=== PATIENT | female | born 1975 | race Caucasian/White ===

== ENCOUNTER 2022-11-19 13:01 | Emergency (ER) | payer MEDICAID, SELFPAY ==
--- NOTE | ~2022-11-19 | CT_ITS ---
EXAMINATION: CT CERVICAL SPINE WITHOUT CONTRAST CLINICAL INFORMATION: Neck pain, radiating back. COMPARISON: There are no prior studies available for comparison. TECHNIQUE: A noncontrast axial CT scan of the cervical spine was obtained. Coronal and sagittal reformatted images were generated at the acquisition workstation. This CT examination was performed using dose optimization techniques as appropriate, variously including the following: *Automated exposure control *Adjustment of mA and/or kV according to patient size (this includes techniques or standardized protocols for targeted exams where dose is matched to indication/reason for exam; i.e. extremities or head) *Use of iterative reconstruction technique DLP: 504 mGy-cm FINDINGS: VERTEBRAL BODIES AND PARASPINAL SOFT TISSUES: There is a slight dextroscoliosis. There is mild reversal of the cervical lordosis. No fractures are demonstrated and the lateral masses of C1 and C2 are normally aligned. The dens is intact. There is normal alignment of the facet joints. The prevertebral soft tissues are unremarkable. There is no cervical lymphadenopathy. The thyroid gland appears normal. The visualized upper lung doshi are well-aerated. SPINAL LEVELS: C2-C3: The facet joints appear normal. There is a small annular calcification posteriorly, there is no central stenosis, and the neural foramina appear patent. C3-C4: The facet joints appear normal bilaterally. Posterior disc contour is normal. There is no spinal cord compression or central stenosis. The neural foramina are patent bilaterally. C4-C5: The facet joints appear normal bilaterally. Posterior disc contour is normal. There is no spinal cord compression or central stenosis. The neural foramina are patent bilaterally. C5-C6: The facet joints appear normal. There is a very shallow posterior disc protrusion without cord compression or central stenosis. The neural foramina are patent. C6-C7: The facet joints appear normal bilaterally. Posterior disc contour is normal. There is no spinal cord compression or central stenosis. The neural foramina are patent bilaterally. C7-T1: The facet joints appear normal bilaterally. Posterior disc contour is normal. There is no spinal cord compression or central stenosis. The neural foramina are patent bilaterally. CT/CT cervical spine wo IV con IMPRESSION: 1. There are no acute fractures or subluxations. 2. There is no significant spondylosis or facet arthropathy. There is no central stenosis or foraminal narrowing. Fleischner guidelines were followed.
[2022-11-19 14:01] VITALS: BP 141/80; PULSE 73; RESP 18; TEMP 37.3; O2SAT 98; BMI 48.7
--- NOTE | 2022-11-19 14:04 | ED_ITS ---
HPI - General Adult General Chief complaint: Back Pain/Injury Stated complaint: neck pain to back pain Time Seen by Provider: 11/19/22 15:07 Source: patient and sign language interpreter Mode of arrival: ambulatory Limitations: language barrier History of Present Illness HPI narrative: Patient is a 47-year-old Icelandic-speaking female presenting to the emergency department with complaint of right lateral neck pain radiating down right shoulder for the past 2 weeks. Patient denies any fall or other trauma. She reports she is developing headaches related to the neck pain. She denies worst headache at onset, denies worse headache of life. Denies any visual changes. Has been using ibuprofen at home but recently ran out. Denies any fevers. Denies any numbness or tingling to her arm. complaint: Right lateral neck pain Onset (ago): week(s) Location: neck Radiation: other (Right shoulder) Severity: severe Severity scale (1-10): 10 Quality: aching Pain Consistency: constant Relieving factors: none Exacerbating factors: movement Associated symptoms: other (Headache) Treatments prior to arrival: NSAID Related Data Previous Rx's Medication Instructions Recorded cyclobenzaprine 5 mg tablet 5 mg PO TID PRN muscle spasm #10 11/19/22 tabs ibuprofen 600 mg tablet 600 mg PO Q8H PRN pain #20 tabs 11/19/22 lidocaine 5 % topical patch 1 patch topical DAILY #15 ea 11/19/22 Allergies Allergy/AdvReac Type Severity Reaction Status Date / Time No Known Allergies Allergy Verified 11/19/22 14:00 Review of Systems Review of Systems: As per HPI. Yes all other systems are reviewed and are negative Constitutional: Constitutional: Reports as per HPI [facility] Social History Social History Advance Directives: No Advance Directives Information Provided: No Physical Exam ED Vital Signs: Vital Signs - 24 hr 11/19/22 14:01 11/19/22 15:20 Temperature 99.2 F 98 F Pulse Rate 73 71 Respiratory Rate 18 18 Blood Pressure 141/80 H 141/93 H Pulse Oximetry 98 98 Oxygen Delivery Method Room Air Room Air BMI result Body Mass Index 48.7 Vital signs have been reviewed and appear to be correct. Blood pressure mildly elevated. Heart rate normal. Respiratory rate normal. Temperature normal. Oxygen saturation normal. Const General: cooperative, healthy appearing and no acute distress Orientation/consciousness: oriented to person, oriented to place, oriented to time and patient oriented x3 Limitations: no limitations [facility] Head: Yes normocephalic and Yes atraumatic Ears: external ears normal General nose exam: Normal external nose present Face and sinus: Yes face symmetric Mouth: oropharynx normal and moist mucous membranes Throat: Yes uvula midline Eyes Pupils: Equal, round and reactive pupils present Neck Neck: Yes normal visual inspection, Yes no meningeal signs and Yes supple Resp Effort & Inspection: normal respiratory effort and able to speak in complete sentences Auscultation: clear to auscultation bilaterally Cardio Rate: regular rate Rhythm: regular rhythm Heart sounds: S1 normal heart sound present and S2 normal heart sound present GI Palpation (GI): Soft to palpation and nontender Auscultation: normoactive bowel sounds General: Yes no CVA tenderness Back/Spine/Pelvis Back: no CVA tenderness Cervical Spine: normal cervical lordosis, cervical muscular tenderness (right la teral), pain with cervical ROM (lateral rotation), No Cervical spine tenderness and No step off deformity Thoracic/Lumbar Spine: thoracic and lumbar spine normal to inspection, No thoracic spinal tenderness and No lumbar spinal tenderness Skin General skin exam: elasticity normal and turgor normal Neuro General: oriented to person, oriented to place, oriented to time, patient oriented x3, gait normal, tone normal, moves all extremities, Normal light touch and pain sensation, no meningeal signs, no focal motor deficits, CN's II-XI intact bilaterally and deep tendon reflexes 2+ bilaterally Cranial nerves: Yes Equal, round and reactive pupils present Cognition (Neuro): normal cognition Gait exam (Neuro): Normal gait present Motor exam (neuro): 5/5 motor strength present throughout and Pronator motor function not present Sensory Exam: Normal double simultaneous stimulation for sensation Extrem General: Yes full ROM, Yes no pedal edema and Yes no calf tenderness Psych Mental Status: mental status grossly normal Affect: normal affect Thought process: Normal thought process present Course Course Course Narrative: RME: 47 yold female presents to the ED for posterior cervical pain pain raidating down back and is worse on movement. patient denies any trauma. Cervical spine CT scan ordered Medications Administered Discontinued Medications Generic Name Dose Route Start Last Admin Trade Name Freq PRN Reason Stop Dose Admin Acetaminophen 650 mg 11/19/22 16:17 11/19/22 16:34 Acetaminophen 325 Mg Tablet PO 11/19/22 16:18 650 mg ONCE ONE Administration Cyclobenzaprine HCl 10 mg 11/19/22 16:17 11/19/22 16:34 Cyclobenzaprine Hcl 10 Mg Tablet PO 11/19/22 16:18 10 mg ONCE ONE Administration Ibuprofen 600 mg 11/19/22 16:17 11/19/22 16:34 Ibuprofen 600 Mg Tablet PO 11/19/22 16:18 600 mg ONCE ONE Administration Medical Decision Making Medical Decision Making [facility] Narrative: Patient is a 47-year-old Icelandic-speaking female presenting to the emergency department with complaint of right lateral neck pain radiating down right shoulder for the past 2 weeks. On exam patient is awake, A+Ox3, VS WNL, a febrile, normal neurological exam without focal deficits, no midline cervical spinal tenderness or stepoffs, tenderness over right cervical paraspinal muscles as well as right trapezius, full ROM right shoulder. Given reported symptoms and physical exam findings, initial differential includes cervical muscle strain, cervical radiculopathy, degenerative disease. Less likely fracture. CT notable for no acute abnormalities. My interpretation is in agreement with the radiologist's interpretation. Patient medicated with Flexeril, ibuprofen, and Tylenol in the ED and reports good relief of symptoms with these medications. Will prescribe 600 mg ibuprofen, Flexeril, and lidocaine patches. Return precautions discussed at bedside. Patient instructed to follow-up with primary care provider. Patient verbalized understanding of and agreement with plan. Differential Diagnosis Differential Diagnoses: The differential diagnosis associated with the presentation includes As per MDM. External Record Review External record reviewed: Inpatient record, Office record and Outpatient record Prescription Management I considered prescription management with: Pain Medication Discharge Plan Discharge Clinical Impression: Cervical muscle strain Patient Disposition: Home, Self-Care Instructions: Cervical Strain (DC) Additional Instructions: You were evaluated in the emergency department today for neck/shoulder pain. Your evaluation did not show signs of medical conditions requiring emergent intervention at this time. We recommended that you use ibuprofen or Tylenol per package directions every 6 hours as needed for pain. If necessary, you can alternate these medications so that you take one medication every 3 hours. For instance, at noon take ibuprofen, then at 3:00 p.m. take Tylenol, then at 6:00 p.m. take ibuprofen. You have been prescribed a muscle relaxer which you may take every 8 hours as needed for spasms. You have been prescribed 5% topical lidocaine patches which you can wear for up to 12 hours in a 24 hour period. Do not apply heat directly over the patches. Please schedule an appointment for follow-up with your primary care physician this week for further evaluation of your symptoms. Return to the emergency department if you experience worsening neck pain, numbness or tingling to your arm, weakness to your arm, difficulty walking, fevers, numbness, tingling, incontinence, groin numbness or tingling, or any other concerning symptoms. Prescriptions: New ibuprofen 600 mg tablet 600 mg PO Q8H PRN (Reason: pain) Qty: 20 0RF lidocaine 5 % adhesive patch,medicated 1 patch topical DAILY Qty: 15 0RF Rx Instructions: leave on most painful area for up to 12 hrs, do not apply heat directly over patches cyclobenzaprine 5 mg tablet 5 mg PO TID PRN (Reason: muscle spasm) Qty: 10 0RF Interventions: ED Discharge Assessment Last Done: 11/19/22 17:37 Discharge Date/Time: 11/19/22 17:37
[2022-11-19 15:20] VITALS: BP 141/93; PULSE 71; RESP 18; TEMP 36.6; O2SAT 98
[2022-11-19] MEDS: Cyclobenzaprine HCl 10 MG TABLET PO (16:34)
[2022-11-19] MEDS: Acetaminophen 325 MG TABLET 650 MG PO (16:34)
[2022-11-19] MEDS: Ibuprofen 600 MG TABLET PO (16:34)
== END 2022-11-19 17:37 | disposition home or self-care (01) ==
PROVIDERS: Emergency Provider Emergency Medicine; PCP Internal Medicine Endocrinology, Diabetes & Metabolism
DX: M54.50 Low back pain, unspecified (principal); M54.2 Cervicalgia; Z79.899 Other long term (current) drug therapy
CPT/HCPCS: 72125; 99283

== ENCOUNTER 2024-01-03 12:03 | Emergency (ER) | payer MEDICAID, SELFPAY ==
--- NOTE | ~2024-01-03 | XR_ITS ---
EXAMINATION: XR KNEE, RIGHT CLINICAL INFORMATION: Pain COMPARISON: None available. TECHNIQUE: Four views of the right knee. FINDINGS: Mild medial and lateral compartment joint space narrowing. Limited evaluation of the patellofemoral compartment on the lateral projection, with question mild narrowing. No visible acute fracture or dislocation. No significant effusion. No abnormal soft tissue calcification. XR/XR knee RT 4V IMPRESSION: Mild arthritis. No radiographic evidence of acute osseous abnormality. Electronically signed by: Jun Gómez MD 01/03/2024 02:26 PM EDT
--- NOTE | ~2024-01-03 | XR_ITS ---
EXAMINATION: XR FOOT, RIGHT CLINICAL INFORMATION: Heel pain COMPARISON: None available. TECHNIQUE: AP, lateral, and oblique views of the right foot. FINDINGS: An exostosis/osteophyte can be seen arising from the calcaneus on the anteromedial surface. Some plantar calcaneal spurs are seen. No fractures or dislocations. No ankle joint effusion. Some mild degenerative changes seen at the first MTP joint with some minimal narrowing and sclerosis. XR/XR foot RT min 3V IMPRESSION: Calcaneal spurs and mild degenerative changes first MTP joint. Electronically signed by: Scott Lynch MD 01/03/2024 02:29 PM EDT
[2024-01-03 12:14] VITALS: BP 144/80; PULSE 70; RESP 16; TEMP 36.7; O2SAT 96; BMI 28.3
--- NOTE | 2024-01-03 12:19 | ED_ITS ---
HPI - Extremity Problem General Chief complaint: Extremity Injury, Lower Stated complaint: r knee pain Time Seen by Provider: 01/03/24 13:47 Source: patient Mode of arrival: ambulatory Limitations: no limitations History of Present Illness ED Provider: SCOTT REAL PA-C HPI Narrative: 48-year-old Tajik-speaking female presents to the ED today for evaluation of right knee pain x3 days. Admits to history of osteoarthritis in her right knee. Denies injury or trauma to the knee. Taking Tylenol at home with minimal relief. Also endorses right foot pain x1 week. Pain is localized to the bottom of her foot. Pain is worse with taking first steps out of bed in the morning. Denies history of plantar fasciitis. Denies injury or trauma to the foot. Denies history of similar. Additionally endorses left-sided low back pain x1 week. Pain does not radiate, isolated to left lower back. Reports taking baclofen with little relief, last dose yesterday. No injury or trauma to the back. No history of spinal surgery. No history of IV drug use. Denies saddle anesthesia, bowel or bladder incontinence or retention, numbness/weakness of the lower extremity. Denies urinary frequency, urgency, dysuria, hematuria, abdominal pain. Denies fever, chills, nausea, vomiting, diarrhea. Related Data Previous Rx's ?Medication ?Instructions ?Recorded cyclobenzaprine 5 mg tablet 5 mg PO TID PRN muscle spasm #10 11/19/22 tabs ibuprofen 600 mg tablet 600 mg PO Q8H PRN pain #20 tabs 11/19/22 lidocaine 5 % topical patch 1 patch topical DAILY #15 ea 11/19/22 cyclobenzaprine 5 mg tablet 5 mg PO Q8H #7 tabs 01/03/24 lidocaine 5 % topical patch 1 patch topical DAILY #15 ea 01/03/24 (Lidoderm) Allergies Allergy/AdvReac Type Severity Reaction Status Date / Time No Known Allergies Allergy Verified 01/03/24 12:19 Review of Systems 2 Review of Systems: Yes all other systems are reviewed and are negative PMFSH Past Medical History Attestation statement: The following information was validated with the patient. Source: old records reviewed and nursing notes reviewed Social History Social History Advance Directives: No Do you have a plan to hurt others: No Plan Physical Exam 2 Vital Signs: Vital Signs: Last Vital Signs Temp 97.9 F 01/03/24 16:34 Pulse 75 01/03/24 16:34 Resp 16 01/03/24 16:34 BP 124/66 01/03/24 16:34 Pulse Ox 96 01/03/24 16:34 O2 Del Method Room Air 01/03/24 16:34 BMI result Body Mass Index 28.3 Vital signs stable, afebrile General: Well appearing, in no acute distress. Skin: Warm, dry, intact. No rashes or lesions. Head: Normocephalic, atraumatic. EENT: Hearing is intact b/l. Conjunctiva clear. PERRLA. Moist mucous membranes.? Neck: Supple without LAD. FROM. Trachea midline.? Cardiac: Chest wall symmetric. RRR. No MRG. No JVD. Lungs: Normal respiratory effort without accessory muscle use. CTA bilaterally. No rales, rhonchi, or wheezes.? Abdomen: Soft, non-tender, non-distended. No rebound tenderness or guarding. Positive BS x4. No CVAT. Back: +no midline spinous tenderness or step-off deformity. Tender to palpation over left lumbar paraspinal muscles without palpable deformity or spasm. Ext: +Right knee without noted swelling or overlying skin changes. Full ROM intact. Nontender to palpation. Right foot/ankle without noted swelling or overlying skin changes. Tenderness along distribution of plantar fascia. Full ROM intact to right ankle and all toes. 2+ PT/DP pulse intact. Ambulating with steady gait. Neuro: AOx3. Normal speech.No saddle anesthesia. Sensation intact to light touch. NV intact distally. Ambulating with steady gait. Psych: Appropriate mood and affect. Responds appropriately to questions. Course Course Course Narrative: This is a Rapid Medical Examination (RME) performed by Juarez Browne PA-C in triage. Full HPI, ROS, assessment and treatment plan per primary provider in the Main ED. 48 yo Tajik speaking female presenting to the ER for evaluation of constant, severe right knee pain x3 days, right foot pain x 1 month without injury. Hx arthritis in the knee. Also endorses frequent urination every 5 minutes and intermittent left sided low back pain for 1 week. No N/V/D, dysuria or abdominal pain. Plan: labs, UA, XR knee and foot Reevaluation(s) Reevaluation #1: 162 -- CBC without leukocytosis or left shift. No anemia. H&H stable. Chemistry without acute electrolyte abnormality requiring intervention. No REINA. Normal liver function. Urine without infection or blood. X-ray right foot showing calcaneal spurs and mild degenerative changes at the 1st MTP joint. No acute fracture. X-ray right knee showing mild arthritis, no evidence of fracture. > exam of back consistent with muscle pain. No midline spinous tenderness or step-off deformity to warrant imaging at this time. Patient treated with Flexeril, lidocaine and Toradol with improvement. > exam of right foot consistent with plantar fasciitis. Educated on exercises. Patient may require PT in the future, advised to follow up with PCP regarding this. > Patient has remained stable throughout ED visit today. Discussed worrisome signs and symptoms and when to return to the ED. All questions answered at this time. Patient is agreeable with disposition and stable for discharge. Medications Administered Discontinued Medications Generic Name Dose Route Start Last Admin Trade Name Huyq PRN Reason Stop Dose Admin Cyclobenzaprine HCl 10 mg 01/03/24 14:27 01/03/24 15:15 Cyclobenzaprine Hcl 10 Mg Tablet PO 01/03/24 14:28 10 mg ONCE ONE Administration Ketorolac Tromethamine 30 mg 01/03/24 14:27 01/03/24 15:19 Ketorolac Tromethamine 30 Mg/Ml Vial IM 01/03/24 14:28 30 mg ONCE ONE Administration Lidocaine 1 patch 01/03/24 14:27 01/03/24 15:14 Lidocaine 4 % Patch Adh..Patch TRANSDERMA 01/03/24 14:28 1 patch ONCE ONE Administration Protocol Medical Decision Making Medical Decision Making MDM Narrative: 48-year-old Tajik-speaking female presents to the ED today for evaluation of right knee pain x3 days. Patient initially hypertensive to 144/80. Vitals otherwise WNL. She is nontoxic-appearing and in no acute distress. On exam, no midline spinous tenderness or step-off deformity. Tender to palpation over left lumbar paraspinal muscles without palpable deformity or spasm. Right knee without noted swelling or overlying skin changes. Full ROM intact. Nontender to palpation. Right foot/ankle without noted swelling or overlying skin changes. Tenderness along distribution of plantar fascia. Full ROM intact to right ankle and all toes. 2+ PT/DP pulse intact. Ambulating with steady gait. Differential diagnosis includes contusion, MSK sprain/strain, arthritis, plantar fasciitis, lumbar sprain/strain. Unlikely lumbar fracture, cauda equina, Guillain-Castaner, epidural abscess, cord compression. Presentation not consistent with gout, pseudogout, Lyme arthritis, septic joint. Differential Diagnosis Differential Diagnoses: The differential diagnosis associated with the presentation includes As above Admission/Observation Not indicated Lab Data [facility] Lab Attestation statement: I reviewed the patient's lab results. As above 01/03/24 13:05 01/03/24 13:05 Labs: Lab Results 01/03/24 01/03/24 Range/Units 13:05 13:12 WBC 5.6 (4.8-10.8) X10*3/uL RBC 4.39 (4.20-5.50) X10*6/uL Hgb 13.1 (12.0-16.0) g/dl Hct 39.4 (37.0-47.0) % MCV 89.7 (80.0-98.0) fL MCH 29.8 (27.0-33.0) pg MCHC 33.2 (31.0-35.0) g/dl RDW 13.6 (11.0-16.0) % Plt Count 199 (160-400) X10*3/uL MPV 10.2 (9.4-12.3) fL Immature Gran % (Auto) 0.2 (0.0-0.4) % Neut % (Auto) 70.9 (45-73) % Lymph % (Auto) 24.2 (20-40) % Briscoe % (Auto) 4.3 (2-11) % Eos % (Auto) 0.0 (0-4) % Baso % (Auto) 0.4 (0-2) % Lymph # (Auto) 1.4 (1.2-4.9) X10*3/uL [place]iscoe # (Auto) 0.2 (0.1-1.2) X10*3/uL Eos # (Auto) 0.0 (0.0-0.4) X10*3/uL Baso # (Auto) 0.0 (0.0-0.2) X10*3/uL Abs Immat Gran (auto) 0.01 (0.00-0.03) X10*3/uL Absolute Neuts (auto) 4.0 (2.0-8.3) x10*3/uL Absolute Nucleated RBC 0.000 (0.0-0.012) X10*3/uL Nucleated RBC % (auto) 0.0 (0.0-0.2) /100WBC Sodium 143 (135-145) mmol/L Potassium 3.8 (3.3-5.1) mmol/L Chloride 111 H (96-108) mmol/L Carbon Dioxide 27 (22-29) mmol/L Anion Gap 9 L (12-20) BUN 14 (9-16) mg/dL Creatinine 0.74 (0.5-1.4) mg/dL Estim Creat Clear Calc 88.7 Estimated GFR > 60 Random Glucose 100 (60-115) mg/dL Uric Acid 3.2 (2.4-5.7) mg/dL Calcium 9.5 (8.4-10.2) mg/dL Magnesium 2.0 (1.6-2.6) mg/dL Total Bilirubin 0.7 (0.0-1.0) mg/dL Direct Bilirubin 0.2 (0.0-0.5) mg/dL AST 17 (5-31) U/L ALT 21 (0-31) U/L Alkaline Phosphatase 85 (39-117) U/L Total Protein 7.3 (6.5-8.0) g/dL Albumin 4.2 (3.5-5.0) g/dL Urine Color Yellow Urine Appearance Clear Urine pH 5.5 (5.0-9.0) Ur Specific [place] 1.020 (1.005-1.025) Urine Protein Negative (Neg-Trace) mg/dL Urine Glucose (UA) Negative (Negative) mg/dL Urine Ketones Negative (Negative) mg/dL Urine Blood Negative (Negative) Urine Nitrite Negative (Negative) Ur Leukocyte Esterase Negative (Negative) Independent Interpretation I performed an independent interpretation of an: Plain X-Ray Interpretation: X-ray right foot without fracture, agree with radiologist's interpretation. X-ray right knee without fracture, agree with radiologist's interpretation. Radiology Impression Discussion of test interpretation with radiology: I have reviewed the radiologist's reading. Radiologist Impression: EXAMINATION: XR FOOT, RIGHT CLINICAL INFORMATION: Heel pain COMPARISON: None available. TECHNIQUE: AP, lateral, and oblique views of the right foot. FINDINGS: An exostosis/osteophyte can be seen arising from the calcaneus on the anteromedial surface. Some plantar calcaneal spurs are seen. No fractures or dislocations. No ankle joint effusion. Some mild degenerative changes seen at the first MTP joint with some minimal narrowing and sclerosis. XR/XR foot RT min 3V IMPRESSION: Calcaneal spurs and mild degenerative changes first MTP joint. Electronically signed by: Scott Lynhc MD 01/03/2024 02:29 PM EDT RP EXAMINATION: XR KNEE, RIGHT CLINICAL INFORMATION: Pain COMPARISON: None available. TECHNIQUE: Four views of the right knee. FINDINGS: Mild medial and lateral compartment joint space narrowing. Limited evaluation of the patellofemoral compartment on the lateral projection, with question mild narrowing. No visible acute fracture or dislocation. No significant effusion. No abnormal soft tissue calcification. XR/XR knee RT 4V IMPRESSION: Mild arthritis. No radiographic evidence of acute osseous abnormality. Electronically signed by: Jun Gómez MD 01/03/2024 02:26 PM EDT RP External Record Review External record reviewed: Inpatient record Prescription Management I considered prescription management with: Other (Flexeril, lidocaine patch) Chronic Conditions Patient?s care impacted by: Other (Osteoarthritis) Social Determinants Patient?s care significantly limited by Social Determinants of Health including: Other Social Determinant of Health Critical Care Time Critical Care Time Critical Care Time: No Discharge Plan Discharge Clinical Impression: Plantar fasciitis of right foot, Lumbar strain, Osteoarthritis Patient Disposition: Home, Self-Care Instructions: Plantar Fasciitis (ED), Plantar Fasciitis Exercises (ED) Additional Instructions: You were seen in the ED today for your foot, knee and back pain. Your blood work today is reassuring. Your urine is negative for infection. Your x-rays show arthritis without acute fracture. As discussed, your foot pain is consistent with plantar fasciitis. You have been provided with exercise you can do at home. You may require physical therapy. Please follow-up with your PCP for this. Regarding your back pain, avoid bending, lifting, or twisting. Use ice several times per day for 20 minutes at a time for the next 48 hours and then change to heat. We recommend you take 600mg ibuprofen every 6 hours or tylenol 650mg every 6 hours as needed for pain. If needed, you can alternate these medications so that you take one medication every 3 hours. For example, at noon take ibuprofen, then at 3pm take tylenol, then at 6pm take ibuprofen. Flexeril is a muscle relaxer. Take this at night as it makes you drowsy. Do not drive, drink alcohol, or operate machinery while taking it. Lidoderm patches are numbing patches. Apply to painful areas. Return with new or worsening symptoms. In the case of an emergency call 911. Prescriptions: New cyclobenzaprine 5 mg tablet 5 mg PO Q8H Qty: 7 0RF lidocaine [Lidoderm] 5 % adhesive patch,medicated 1 patch topical DAILY Qty: 15 0RF Rx Instructions: leave on most painful area for up to 12 hrs No Action ibuprofen 600 mg tablet 600 mg PO Q8H PRN (Reason: pain) Qty: 20 0RF lidocaine 5 % adhesive patch,medicated 1 patch topical DAILY Qty: 15 0RF Rx Instructions: leave on most painful area for up to 12 hrs, do not apply heat directly over patches cyclobenzaprine 5 mg tablet 5 mg PO TID PRN (Reason: muscle spasm) Qty: 10 0RF Interventions: ED Discharge Assessment Last Done: 01/03/24 16:34 Discharge Date/Time: 01/03/24 16:36 Print Language: Tajik
[2024-01-03 13:22] LABS: Basophils Percent Auto 0.4 % (0-2); Hematocrit 39.4 % (37.0-47.0); Hemoglobin 13.1 g/dl (12.0-16.0); Imm Gran Abs Auto 0.01 X10*3/uL (0.00-0.03); Imm Gran Pct Auto 0.2 % (0.0-0.4); Lymphocytes Absolute Auto 1.4 X10*3/uL (1.2-4.9); Lymphocytes Percent Auto 24.2 % (20-40); MANUAL DIFF FLAG NO; Mean Corpuscular HGB Conc 33.2 g/dl (31.0-35.0); Mean Corpuscular Hemoglobin 29.8 pg (27.0-33.0); Mean Corpuscular Volume 89.7 fL (80.0-98.0); Mean Platelet Volume 10.2 fL (9.4-12.3); Monocytes Absolute Auto 0.2 X10*3/uL (0.1-1.2); Monocytes Percent Auto 4.3 % (2-11); Neutrophils Percent Auto 70.9 % (45-73); Platelet Count 199 X10*3/uL (160-400); Red Blood Count 4.39 X10*6/uL (4.20-5.50); Red Cell Distribution Width 13.6 % (11.0-16.0); White Blood Count 5.6 X10*3/uL (4.8-10.8)
[2024-01-03 13:26] LABS: Appearance Urine Clear; Color Urine Yellow; Glucose Urine UA Negative (Negative); Leukocyte Esterase Urine Negative (Negative); Nitrite Urine Negative (Negative); PH 5.5 (5.0-9.0); Urine Blood Negative (Negative); Urine Ketones Negative (Negative); Urine Protein Negative (Neg-Trace)
[2024-01-03 13:45] LABS: Alanine Aminotransferase 21 U/L (0-31); Albumin Level 4.2 g/dL (3.5-5.0); Alkaline Phosphatase 85 U/L (39-117); Anion Gap 9 (12-20); Aspartate Amino Transferase 17 U/L (5-31); Bilirubin Direct 0.2 mg/dL (0.0-0.5); Bilirubin Total 0.7 mg/dL (0.0-1.0); Blood Urea Nitrogen 14 mg/dL (9-16); Calcium 9.5 mg/dL (8.4-10.2); Carbon Dioxide 27 mmol/L (22-29); Chloride 111 mmol/L (96-108); Creatinine Clr Calc Pharmacy 88.7; Estimated Glomerular Filt Rate > 60; Glucose Random 100 mg/dL (60-115); Potassium 3.8 mmol/L (3.3-5.1); Sodium 143 mmol/L (135-145); Total Protein 7.3 g/dL (6.5-8.0)
[2024-01-03 14:39] LABS: Uric Acid 3.2 mg/dL (2.4-5.7)
[2024-01-03] MEDS: Lidocaine 4 % Patch ADH..PATCH 1 PATCH TRANSDERMA (15:14)
[2024-01-03] MEDS: Cyclobenzaprine HCl 10 MG TABLET PO (15:15)
[2024-01-03] MEDS: Ketorolac Tromethamine 30 MG/ML VIAL IM (15:19)
[2024-01-03 16:11] VITALS: BP 124/66; PULSE 75; RESP 16; TEMP 36.6; O2SAT 96
[2024-01-03 16:34] VITALS: BP 124/66; PULSE 75; RESP 16; TEMP 36.6; O2SAT 96
== END 2024-01-03 16:36 | disposition home or self-care (01) ==
PROVIDERS: Physician Assistant; Physician Assistant Medical; Emergency Provider Student in an Organized Health Care Education/Training Program
DX: S39.012A Strain of muscle, fascia and tendon of lower back, initial encounter (principal); M72.2 Plantar fascial fibromatosis; M25.561 Pain in right knee; X58.XXXA Exposure to other specified factors, initial encounter; Y93.9 Activity, unspecified; Y92.9 Unspecified place or not applicable; Y99.8 Other external cause status; Z79.899 Other long term (current) drug therapy
CPT/HCPCS: 36415; 73564; 73630; 80048; 80076; 81003; 83735; 84550; 85025; 96372; 99283; 99284; J1885

== ENCOUNTER 2024-03-15 18:06 | Emergency (ER) | payer MEDICAID, SELFPAY ==
--- NOTE | 2024-03-15 | ECG_ITS ---
Test Reason : CP Blood Pressure : / mmHG Vent. Rate : 063 BPM Atrial Rate : 063 BPM P-R Int : 150 ms QRS Dur : 080 ms QT Int : 398 ms P-R-T Axes : 023 024 018 degrees QTc Int : 407 ms Normal sinus rhythm Normal ECG No previous ECGs available Referred By: Generic ED Physician Electronically Signed By:PRAVEEN ROWLAND MD
--- NOTE | ~2024-03-15 | XR_ITS ---
EXAMINATION: XR CHEST CLINICAL INFORMATION: CP COMPARISON: None available. TECHNIQUE: 2 views of the chest were obtained. FINDINGS: No significant abnormality is noted involving the heart, lungs, mediastinum, bony thorax or soft tissues. XR/XR chest 2V IMPRESSION: Unremarkable examination. Electronically signed by: Alex Macdonald MD 03/15/2024 09:17 PM [facility]
[2024-03-15 18:19] VITALS: BP 130/79; PULSE 71; RESP 16; TEMP 35.9; O2SAT 98; BMI 32.3
--- NOTE | 2024-03-15 18:37 | ED.CHESTPAIN ---
HPI - Chest Pain General Chief Complaint: Chest Pain Stated Complaint: chest pain/left arm Time Seen by Provider: 03/15/24 19:32 Source: patient and information and referral director Mode of arrival: ambulatory Limitations: no limitations History of Present Illness ED Provider: DR. Butts HPI narrative: a 48-year-old female walked into the emergency department for evaluation of left-sided chest wall pain started at 15:00 today, no predisposing factor, no clear aggravating or relieving factors, pain has been constant for the past 5 hours, no shortness of breath, no fever, no chills, no recent travel, no lower extremity swelling or tenderness, no coughing, patient is been complaining of left shoulder pain for the last 3-4 days. Related Data Previous Rx's ?Medication ?Instructions ?Recorded cyclobenzaprine 5 mg tablet 5 mg PO TID PRN muscle spasm #10 11/19/22 tabs ibuprofen 600 mg tablet 600 mg PO Q8H PRN pain #20 tabs 11/19/22 lidocaine 5 % topical patch 1 patch topical DAILY #15 ea 11/19/22 cyclobenzaprine 5 mg tablet 5 mg PO Q8H #7 tabs 01/03/24 lidocaine 5 % topical patch 1 patch topical DAILY #15 ea 01/03/24 (Lidoderm) Allergies Allergy/AdvReac Type Severity Reaction Status Date / Time No Known Allergies Allergy Verified 03/15/24 18:21 Review of Systems Review of Systems: All other systems are reviewed and are negative Constitutional: Reports as per HPI and Reports no additional constitutional complaints Eyes: Reports as per HPI and Reports no additional eye complaints Reports system reviewed and no additional complaints, except as documented Cardiovascular: Reports as per HPI and Reports no additional cardiovascular complaints Respiratory: Reports as per HPI and Reports no additional respiratory complaints Gastrointestinal: Reports as per HPI and Reports no additional gastrointestinal complaints Genitourinary: Reports no additional female genitourinary complaints Musculoskeletal: Reports no additional musculoskeletal complaints Skin/Breast: Reports system reviewed and no additional complaints, except as docu Psychiatric: Reports no additional psychiatric complaints Endocrine: Reports no additional endocrine complaints Hematologic/Lymphatic: Reports no additional hematologic/lymphatic complaints Allergic/Immunologic: Reports no additional allergic/immunologic complaints Reports system reviewed and no additional complaints, except as documented and Reports Abnormal speech present [facility] Social History Social History Advance Directives: No Advance Directives Information Provided: No Physical Exam Vital Signs: Vital Signs: Last Vital Signs Temp 96.6 F L 03/15/24 18:19 Pulse 71 03/15/24 18:19 Resp 16 03/15/24 18:19 BP 130/79 03/15/24 18:19 Pulse Ox 98 03/15/24 18:19 O2 Del Method Room Air 03/15/24 18:19 BMI result Body Mass Index 32.3 Vital signs have been reviewed and appear to be correct. Blood pressure elevated. Heart rate normal. Respiratory rate normal. Temperature normal. Oxygen saturation normal. Appearance: Alert. Oriented X3. No acute distress. Head: Normal external exam. Normocephalic. Atraumatic. No Valadez signs noted. No raccoon eyes noted Eyes: PERRLA. EOMI. Conjunctiva and sclera normal. Eyelids normal. ENT: TM's Normal. Pharynx normal. Uvula midline. Moist mucous membranes. No trismus noted. No drooling noted. No muffled voice noted. Neck: Normal inspection. Neck supple. FROM. No adenopathy. Thyroid Normal. No meningeal signs. No neck mass noted. CVS: Normal heart rate and rhythm. Heart sound normal. No murmurs noted. Pulses normal throughout. Respiratory: No respiratory distress. Painless inspiration. Breath sounds normal. No wheezes/rales/rhonchi noted. Point of tenderness over left pectoralis muscle, no step-off, no deformity.No accessory muscle usage noted or decreased air movement noted. Abdomen: Soft and nontender. Bowel sounds normal in all 4 quadrants. No distention noted. No organomegaly noted. No visible injury noted. Back: No CVA tenderness. Full range of motion noted. Skin: Skin warm and dry. Normal skin color. Normal skin turgor. No rashes/lesions/lacerations noted. Extremities: No lower extremity edema. Extremities exhibit normal range of motion. Extremities nontender. Neuro: Oriented X 3. Cranial nerve exam: II-XII are grossly intact No motor deficit. No sensory deficit. Reflexes normal. Course Course Course Narrative: This is an RME: Additional HPI, ROS, PE not included below will be deferred to primary provider. RME assessment and note performed by: Renee Frederick, PA-C This is a [id number] who presents to the ER with complaints of chest pain that started at 3:00 p.m. this afternoon. Patient reports that it is radiating down her left arm. Describes it as sharp. She states that she has a history of chest pain and was started on aspirin. Plan: Labs, EKG, chest x-ray, further ER evaluation needed. Reevaluation(s) Reevaluation #1: 48-year-old female with constant left-sided chest pain, no risk for PE / DVT with normal D-dimer, patient also with HEART score of 0. Will reassure and follow-up with PCP. Time: 23:00 Medical Decision Making Differential Diagnosis Differential Diagnoses: The differential diagnosis associated with the presentation includes ( ACS, pneumonia, pneumothorax, pleural effusion, severe anemia, electrolyte derangement, pulmonary embolism.) Admission/Observation Consideration of admission/observation: Escalation of care including admission/observation considered Lab Data MDM Lab Attestation statement: I reviewed the patient's lab results. 03/15/24 18:54 03/15/24 18:54 Labs: Lab Results 03/15/24 03/15/24 Range/Units 18:54 18:55 WBC 6.8 (4.8-10.8) X10*3/uL RBC 4.47 (4.20-5.50) X10*6/uL Hgb 13.5 (12.0-16.0) g/dl Hct 41.5 (37.0-47.0) % MCV 92.8 (80.0-98.0) fL MCH 30.2 (27.0-33.0) pg MCHC 32.5 (31.0-35.0) g/dl RDW 13.1 (11.0-16.0) % Plt Count 213 (160-400) X10*3/uL MPV 10.6 (9.4-12.3) fL Immature Gran % (Auto) 1.0 H (0.0-0.4) % Neut % (Auto) 66.6 (45-73) % Lymph % (Auto) 26.4 (20-40) % [place] % (Auto) 5.3 (2-11) % Eos % (Auto) 0.1 (0-4) % Baso % (Auto) 0.6 (0-2) % Lymph # (Auto) 1.8 (1.2-4.9) X10*3/uL [place] # (Auto) 0.4 (0.1-1.2) X10*3/uL Eos # (Auto) 0.0 (0.0-0.4) X10*3/uL Baso # (Auto) 0.0 (0.0-0.2) X10*3/uL Abs Immat Gran (auto) 0.07 H (0.00-0.03) X10*3/uL Absolute Neuts (auto) 4.6 (2.0-8.3) x10*3/uL Absolute Nucleated RBC 0.000 (0.0-0.012) X10*3/uL Nucleated RBC % (auto) 0.0 (0.0-0.2) /100WBC APTT 28.5 (26.0-36.8) SEC D-Dimer High Sensitivty < 150 NG/ML Sodium 142 (135-145) mmol/L Potassium 4.2 (3.3-5.1) mmol/L Chloride 107 (96-108) mmol/L Carbon Dioxide 27 (22-29) mmol/L Anion Gap 12 (12-20) BUN 20 H (9-16) mg/dL Creatinine 0.77 (0.5-1.4) mg/dL Estim Creat Clear Calc 94.4 Estimated GFR > 60 Random Glucose 106 (60-115) mg/dL Calcium 9.4 (8.4-10.2) mg/dL Magnesium 2.0 (1.6-2.6) mg/dL Total Bilirubin 0.5 (0.0-1.0) mg/dL Direct Bilirubin 0.2 (0.0-0.5) mg/dL AST 24 (5-31) U/L ALT 27 (0-31) U/L Alkaline Phosphatase 84 (39-117) U/L Troponin I High Sens < 2.7 (<3.5-17.0) ng/L Total Protein 6.8 (6.5-8.0) g/dL Albumin 4.0 (3.5-5.0) g/dL Influenza Type A (PCR) NEGATIVE (Negative) Influenza Type B (PCR) NEGATIVE (Negative) RSV RNA Qual (PCR) NEGATIVE (Negative) SARS-CoV-2 RNA (RT-PCR) NEGATIVE (Negative) Independent Interpretation I performed an independent interpretation of an: Plain X-Ray ( Chest: No acute intrathoracic pathology.) Radiology Impression Discussion of test interpretation with radiology: I have reviewed the radiologist's reading. Discharge Plan Discharge Clinical Impression: Chest wall pain Patient Disposition: Still a Patient Instructions: Chest Pain (ED) Prescriptions: No Action ibuprofen 600 mg tablet 600 mg PO Q8H PRN (Reason: pain) Qty: 20 0RF lidocaine 5 % adhesive patch,medicated 1 patch topical DAILY Qty: 15 0RF Rx Instructions: leave on most painful area for up to 12 hrs, do not apply heat directly over patches cyclobenzaprine 5 mg tablet 5 mg PO TID PRN (Reason: muscle spasm) Qty: 10 0RF cyclobenzaprine 5 mg tablet 5 mg PO Q8H Qty: 7 0RF lidocaine [Lidoderm] 5 % adhesive patch,medicated 1 patch topical DAILY Qty: 15 0RF Rx Instructions: leave on most painful area for up to 12 hrs Referrals: Evaristo Abrams MD [Primary Care Provider] - Print Language: Iranian
[2024-03-15 19:00] LABS: MANUAL DIFF FLAG NO
[2024-03-15 19:11] LABS: Partial Thromboplastin Time 28.5 SEC (26.0-36.8)
[2024-03-15 19:25] LABS: Basophils Percent Auto 0.6 % (0-2); Eosinophils Percent Auto 0.1 % (0-4); Hematocrit 41.5 % (37.0-47.0); Hemoglobin 13.5 g/dl (12.0-16.0); Imm Gran Abs Auto 0.07 X10*3/uL (0.00-0.03); Lymphocytes Absolute Auto 1.8 X10*3/uL (1.2-4.9); Lymphocytes Percent Auto 26.4 % (20-40); Mean Corpuscular HGB Conc 32.5 g/dl (31.0-35.0); Mean Corpuscular Hemoglobin 30.2 pg (27.0-33.0); Mean Corpuscular Volume 92.8 fL (80.0-98.0); Mean Platelet Volume 10.6 fL (9.4-12.3); Monocytes Absolute Auto 0.4 X10*3/uL (0.1-1.2); Monocytes Percent Auto 5.3 % (2-11); Neutrophils Absolute Auto 4.6 x10*3/uL (2.0-8.3); Neutrophils Percent Auto 66.6 % (45-73); Platelet Count 213 X10*3/uL (160-400); Red Blood Count 4.47 X10*6/uL (4.20-5.50); Red Cell Distribution Width 13.1 % (11.0-16.0); White Blood Count 6.8 X10*3/uL (4.8-10.8)
[2024-03-15 19:28] LABS: Anion Gap 12 (12-20); Aspartate Amino Transferase 24 U/L (5-31); Bilirubin Direct 0.2 mg/dL (0.0-0.5); Bilirubin Total 0.5 mg/dL (0.0-1.0); Blood Urea Nitrogen 20 mg/dL (9-16); Calcium 9.4 mg/dL (8.4-10.2); Carbon Dioxide 27 mmol/L (22-29); Chloride 107 mmol/L (96-108); Creatinine Clr Calc Pharmacy 94.4; Estimated Glomerular Filt Rate > 60; Glucose Random 106 mg/dL (60-115); Potassium 4.2 mmol/L (3.3-5.1); Sodium 142 mmol/L (135-145); Total Protein 6.8 g/dL (6.5-8.0); Troponin-I High Sensitivity < 2.7 ng/L (<3.5-17.0)
[2024-03-15 19:29] LABS: Alanine Aminotransferase 27 U/L (0-31); Alkaline Phosphatase 84 U/L (39-117)
[2024-03-15 19:41] LABS: Influenza A PCR NEGATIVE (Negative); Influenza B PCR NEGATIVE (Negative); Resp Syncy Virus RNA Qual PCR NEGATIVE (Negative); SARS COV2 PCR INHOUSE NEGATIVE (Negative)
[2024-03-15 19:42] LABS: D Dimer High Sensitivity < 150 NG/ML
[2024-03-15] MEDS: Ibuprofen 800 MG TABLET PO (20:09)
[2024-03-15 22:10] VITALS: BP 122/72; PULSE 60; RESP 16; TEMP 36.6; O2SAT 96
[2024-03-15 22:38] LABS: Troponin-I High Sensitivity < 2.7 ng/L (<3.5-17.0)
[2024-03-15 23:31] VITALS: BP 122/72; PULSE 60; RESP 16; TEMP 36.6; O2SAT 96
== END 2024-03-15 23:32 | disposition home or self-care (01) ==
PROVIDERS: Physician Assistant Medical; Emergency Provider Emergency Medicine; PCP Internal Medicine
DX: R07.89 Other chest pain (principal); Z03.818 Encounter for observation for suspected exposure to other biological agents ruled out
CPT/HCPCS: 0241U; 36415; 71046; 80048; 80076; 83735; 84484; 85025; 85379; 85730; 93005; 99285

== ENCOUNTER → 2024-03-15 18:12 | Outpatient (BNV) | payer MEDICAID, SELFPAY | PROVIDERS: Emergency Provider Emergency Medicine; PCP Internal Medicine; Visit Provider Internal Medicine Cardiovascular Disease | DX: R07.9 Chest pain, unspecified (principal) | CPT/HCPCS: 93010 ==

== ENCOUNTER 2024-08-29 10:33 | Emergency (ER) | payer MEDICAID, SELFPAY ==
--- NOTE | ~2024-08-29 | XR_ITS ---
EXAMINATION: XR CHEST CLINICAL INFORMATION: cough COMPARISON: 03/15/2024. TECHNIQUE: Frontal view of the chest was obtained. FINDINGS: Borderline cardiac enlargement. Mediastinal and hilar contours appear normal. The lungs are clear bilaterally. No pneumothorax or effusion. No focal osseous or soft tissue abnormality. XR/XR chest 1V IMPRESSION: No active pulmonary disease. Electronically signed by: All Hill MD 08/29/2024 11:16 AM EDT
[2024-08-29 10:37] VITALS: BP 143/89; PULSE 87; RESP 20; TEMP 37.2; O2SAT 97; BMI 36.0
[2024-08-29 11:37] LABS: MANUAL DIFF FLAG NO
[2024-08-29 11:39] LABS: Basophils Percent Auto 0.3 % (0-2); Hematocrit 37.9 % (37.0-47.0); Hemoglobin 12.3 g/dl (12.0-16.0); Imm Gran Abs Auto 0.02 X10*3/uL (0.00-0.03); Imm Gran Pct Auto 0.3 % (0.0-0.4); Lymphocytes Absolute Auto 0.8 X10*3/uL (1.2-4.9); Lymphocytes Percent Auto 12.9 % (20-40); Mean Corpuscular HGB Conc 32.5 g/dl (31.0-35.0); Mean Corpuscular Volume 89.4 fL (80.0-98.0); Monocytes Absolute Auto 0.3 X10*3/uL (0.1-1.2); Neutrophils Absolute Auto 4.7 x10*3/uL (2.0-8.3); Neutrophils Percent Auto 81.5 % (45-73); Platelet Count 173 X10*3/uL (160-400); Red Blood Count 4.24 X10*6/uL (4.20-5.50); Red Cell Distribution Width 13.4 % (11.0-16.0); White Blood Count 5.8 X10*3/uL (4.8-10.8)
[2024-08-29 11:54] LABS: Alanine Aminotransferase 33 U/L (0-31); Albumin Level 4.1 g/dL (3.5-5.0); Alkaline Phosphatase 98 U/L (39-117); Anion Gap 13 (12-20); Aspartate Amino Transferase 22 U/L (5-31); Bilirubin Direct 0.3 mg/dL (0.0-0.5); Bilirubin Total 0.8 mg/dL (0.0-1.0); Blood Urea Nitrogen 12 mg/dL (9-16); Calcium 9.9 mg/dL (8.4-10.2); Carbon Dioxide 27 mmol/L (22-29); Chloride 108 mmol/L (96-108); Creatinine Clr Calc Pharmacy 108.7; Estimated Glomerular Filt Rate > 60; Glucose Random 103 mg/dL (60-115); Lipase 11 U/L (8-78); Potassium 4.6 mmol/L (3.3-5.1); Sodium 143 mmol/L (135-145); Total Protein 6.9 g/dL (6.5-8.0)
[2024-08-29 12:20] LABS: Influenza A PCR NEGATIVE (Negative); Influenza B PCR NEGATIVE (Negative); Resp Syncy Virus RNA Qual PCR NEGATIVE (Negative); SARS COV2 PCR INHOUSE POSITIVE (Negative)
--- NOTE | 2024-08-29 12:53 | ED_ITS ---
HPI - Abdominal Pain General Chief Complaint: Abdominal Pain Stated Complaint: Headache Stomach & Knee Pain Time Seen by Provider: 08/29/24 12:31 History of Present Illness HPI narrative: Patient is a 49-year-old female with a history of coughing congestion upper respiratory symptoms fever malaise. Nausea. Patient from home. Does not think she is . Fever was low-grade did not take an exact temperature there is no neck pain. Patient is vaccinated for COVID. Related Data Previous Rx's ?Medication ?Instructions ?Recorded cyclobenzaprine 5 mg tablet 5 mg PO TID PRN muscle spasm #10 11/19/22 tabs ibuprofen 600 mg tablet 600 mg PO Q8H PRN pain #20 tabs 11/19/22 lidocaine 5 % topical patch 1 patch topical DAILY #15 ea 11/19/22 cyclobenzaprine 5 mg tablet 5 mg PO Q8H #7 tabs 01/03/24 lidocaine 5 % topical patch 1 patch topical DAILY #15 ea 01/03/24 (Lidoderm) benzonatate 100 mg capsule 100 mg PO TID PRN cough #20 caps 08/29/24 ibuprofen 400 mg tablet 400 mg PO Q6H PRN pain #20 tabs 08/29/24 nirmatrelvir 300 mg (150 mg See Rx Instructions PO .COMPLEX 08/29/24 x2)-ritonavir 100 mg tablet,dose #30 ea pack (Paxlovid) ondansetron 4 mg disintegrating 4 mg PO TID PRN nausea and 08/29/24 tablet vomiting 5 days #10 tabs Allergies Allergy/AdvReac Type Severity Reaction Status Date / Time No Known Allergies Allergy Verified 08/29/24 10:40 Review of Systems Review of Systems Positive coughing positive generalized malaise positive headache positive nausea positive diarrhea Yes all other systems are reviewed and are negative [facility] Past Medical History Attestation statement: The following information was validated with the patient. Social History Social History Advance Directives: No Advance Directives Information Provided: Yes Do you have a plan to hurt others: No Plan Physical Exam ED Vital Signs: Vital Signs - 24 hr 08/29/24 10:37 Temperature 99.0 F Pulse Rate 87 Respiratory Rate 20 Blood Pressure 143/89 H Pulse Oximetry 97 Oxygen Delivery Method Room Air BMI result Body Mass Index 36.0 Appearance: Alert. Oriented X3. No acute distress. Eyes: Pupils equal, round and reactive to light. ENT: Pharynx normal. Neck: Normal inspection. Neck supple. No lymph nodes noted. No crepitus CVS: Normal heart rate and rhythm. Pulses normal. Normal S1 and S2 Respiratory: No respiratory distress. Breath sounds normal. No Wheezing. No rales Abdomen: Soft and nontender. No rigidity. No distention. good BS x4 Skin: Skin warm and dry. Normal skin color. Normal skin turgor. Extremities: No lower extremity edema. Neurovascular intact to all extremities. No Lacerations. No Rash Neuro: Oriented X 3. No motor deficit. No sensory deficit. Moving all extermities. No slurred speech Medical Decision Making Medical Decision Making [facility] Narrative: Well-appearing no acute distress. My interpretation patient's chest x-ray is grossly negative. Patient's white count is 5.8. LFTs are normal. Patient's COVID came back positive. Likely the cause of patient's symptoms. Currently in stable condition. O2 sat is 97% on room air. Patient has been vaccinated in the past. Had a long discussion with patient about less than minus of Paxlovid. Patient went of the medication. A prescription will be called in Differential Diagnosis Differential Diagnoses: The differential diagnosis associated with the presentation includes COVID flu RSV pneumonia Admission/Observation Consideration of admission/observation: Escalation of care including admission/observation considered O2 sat is normal no need to stay Lab Data [facility] Lab Attestation statement: I reviewed the patient's lab results. 08/29/24 10:52 08/29/24 10:52 Labs: Lab Results 08/29/24 08/29/24 Range/Units 10:51 10:52 WBC 5.8 (4.8-10.8) X10*3/uL RBC 4.24 (4.20-5.50) X10*6/uL Hgb 12.3 (12.0-16.0) g/dl Hct 37.9 (37.0-47.0) % MCV 89.4 (80.0-98.0) fL MCH 29.0 (27.0-33.0) pg MCHC 32.5 (31.0-35.0) g/dl RDW 13.4 (11.0-16.0) % Plt Count 173 (160-400) X10*3/uL MPV 11.0 (9.4-12.3) fL Immature Gran % (Auto) 0.3 (0.0-0.4) % Neut % (Auto) 81.5 H (45-73) % Lymph % (Auto) 12.9 L (20-40) % [place] % (Auto) 5.0 (2-11) % Eos % (Auto) 0.0 (0-4) % Baso % (Auto) 0.3 (0-2) % Lymph # (Auto) 0.8 L (1.2-4.9) X10*3/uL [place] # (Auto) 0.3 (0.1-1.2) X10*3/uL Eos # (Auto) 0.0 (0.0-0.4) X10*3/uL Baso # (Auto) 0.0 (0.0-0.2) X10*3/uL Abs Immat Gran (auto) 0.02 (0.00-0.03) X10*3/uL Absolute Neuts (auto) 4.7 (2.0-8.3) x10*3/uL Absolute Nucleated RBC 0.000 (0.0-0.012) X10*3/uL Nucleated RBC % (auto) 0.0 (0.0-0.2) /100WBC Sodium 143 (135-145) mmol/L Potassium 4.6 (3.3-5.1) mmol/L Chloride 108 (96-108) mmol/L Carbon Dioxide 27 (22-29) mmol/L Anion Gap 13 (12-20) BUN 12 (9-16) mg/dL Creatinine 0.65 (0.5-1.4) mg/dL Estim Creat Clear Calc 108.7 Estimated GFR > 60 Random Glucose 103 (60-115) mg/dL Calcium 9.9 (8.4-10.2) mg/dL Total Bilirubin 0.8 (0.0-1.0) mg/dL Direct Bilirubin 0.3 (0.0-0.5) mg/dL AST 22 (5-31) U/L ALT 33 H (0-31) U/L Alkaline Phosphatase 98 (39-117) U/L Total Protein 6.9 (6.5-8.0) g/dL Albumin 4.1 (3.5-5.0) g/dL Lipase 11 (8-78) U/L Influenza Type A (PCR) NEGATIVE (Negative) Influenza Type B (PCR) NEGATIVE (Negative) RSV RNA Qual (PCR) NEGATIVE (Negative) SARS-CoV-2 RNA (RT-PCR) POSITIVE A (Negative) Independent Interpretation I performed an independent interpretation of an: Plain X-Ray (Chest x-ray negative for pneumonia no pneumothorax) Radiology Impression Discussion of test interpretation with radiology: I have reviewed the radiologist's reading. Prescription Management I considered prescription management with: Antiviral Social Determinants Patient?s care significantly limited by Social Determinants of Health including: Problems related to primary support group Discharge Plan Discharge Clinical Impression: COVID Patient Disposition: Home, Self-Care Instructions: COVID-19 (Coronavirus Disease 2019) (ED) Prescriptions: New ibuprofen 400 mg tablet 400 mg PO Q6H PRN (Reason: pain) Qty: 20 0RF ondansetron 4 mg tablet,disintegrating 4 mg PO TID PRN (Reason: nausea and vomiting) 5 Days Qty: 10 0RF Paxlovid 300 mg (150 mg x 2)-100 mg tablets,dose pack See Rx Instructions .ROUTE .COMPLEX Qty: 30 0RF Rx Instructions: take TWO 150 mg tablets of nirmatrelvir with ONE 100 mg tablet of ritonavir twice daily for 5 days benzonatate 100 mg capsule 100 mg PO TID PRN (Reason: cough) Qty: 20 0RF No Action ibuprofen 600 mg tablet 600 mg PO Q8H PRN (Reason: pain) Qty: 20 0RF lidocaine 5 % adhesive patch,medicated 1 patch topical DAILY Qty: 15 0RF Rx Instructions: leave on most painful area for up to 12 hrs, do not apply heat directly over patches cyclobenzaprine 5 mg tablet 5 mg PO TID PRN (Reason: muscle spasm) Qty: 10 0RF cyclobenzaprine 5 mg tablet 5 mg PO Q8H Qty: 7 0RF lidocaine [Lidoderm] 5 % adhesive patch,medicated 1 patch topical DAILY Qty: 15 0RF Rx Instructions: leave on most painful area for up to 12 hrs Referrals: Evaristo Abrams MD [Primary Care Provider] - Print Language: Icelandic
[2024-08-29 13:28] VITALS: BP 143/89; PULSE 87; RESP 20; TEMP 37.2; O2SAT 97
== END 2024-08-29 13:30 | disposition home or self-care (01) ==
PROVIDERS: Emergency Provider Emergency Medicine Emergency Medical Services; PCP Internal Medicine
DX: U07.1 COVID-19 (principal); R51.9 Headache, unspecified; R05.9 Cough, unspecified; R11.0 Nausea
CPT/HCPCS: 0241U; 71045; 80048; 80076; 83690; 85025; 99283

== ENCOUNTER → 2024-08-29 10:44 | Outpatient (BNV) | payer MEDICAID, SELFPAY | PROVIDERS: Visit Provider Radiology Diagnostic Radiology | DX: R05.9 Cough, unspecified (principal) | CPT/HCPCS: 71045 ==